=== PATIENT | female | born 1985 | race Caucasian/White ===

== ENCOUNTER 2016-08-13 21:44 | Inpatient (IN) | payer OTHER ==
[~2016-08-13] VITALS: Ht 160 cm; Wt 83.0 kg
[2016-08-13 21:55] VITALS: BP 143/89
--- NOTE | 2016-08-13 23:45 | NUR ---
PT TAKEN TO BED 6
--- NOTE | 2016-08-13 23:47 | NUR ---
30 Y/O F W/C/O R SIDE ABD PAIN AND DIARRHEA X 1 DAY. DENIES ANY FEVER, N/V. ER MADE AWARE.
--- NOTE | 2016-08-13 23:57 | NUR ---
Dr. Mcconnell evaluating patient at bedside.
[2016-08-14] MEDS ORDERED: NACL 0.9% 1,000 ML IV ONE (00:03)
[2016-08-14] MEDS ORDERED: MORPHINE SULFATE 4 MG/ML SYR IVP ONE ×2 (00:05→01:40)
[2016-08-14] MEDS ORDERED: ONDANSETRON 4 MG/2 ML VIAL IVP ONE ×2 (00:05→01:40)
[2016-08-14 00:15] LABS: BASOPHILS # (AUTO) 0.1 K/uL (0.00-0.22); BASOPHILS % (AUTO) 1.1 % (0.0-2.0); EOSINOPHILS # (AUTO) 0.2 K/uL (0-0.4); EOSINOPHILS % (AUTO) 1.9 % (0.0-4.0); HEMATOCRIT 39.3 % (36-48); LYMPHOCYTES # (AUTO) 1.8 K/uL (2.5-16.5); LYMPHOCYTES % (AUTO) 17.7 % (20.5-51.1); MEAN CORPUSCULAR HEMOGLOBIN 29 pg (27-31); MEAN CORPUSCULAR HGB CONC 33 g/dL (33-37); MEAN CORPUSCULAR VOLUME 89 fL (80-94); MONOCYTES # (AUTO) 0.7 K/uL (0.8-1.0); MONOCYTES % (AUTO) 7.2 % (1.7-9.3); NEUTROPHILS # (AUTO) 7.1 K/uL (1.8-7.7); NEUTROPHILS % (AUTO) 72.1 % (42.2-75.2); PLATELET COUNT (AUTO) 197 K/uL (140-450); RED BLOOD CELL COUNT(AUTO) 4.43 MIL/uL (4.20-5.40); RED CELL DISTRIBUTION WIDTH 12.1 % (11.6-13.7); WHITE BLOOD COUNT (AUTO) 9.9 K/uL (4.8-10.8)
[2016-08-14 00:26] LABS: APPEARANCE,URINE CLEAR (CLEAR); BILIRUBIN,URINE NEGATIVE (NEGATIVE); BLOOD, URINE NEGATIVE (NEGATIVE); COLOR,URINE YELLOW (YELLOW); LEUKOCYTE ESTERASE ,URINE NEGATIVE (NEGATIVE); NITRITE, URINE NEGATIVE (NEGATIVE); PROTEIN,URINE NEGATIVE (NEGATIVE); UGLUCOSE NEGATIVE (NEGATIVE); UROBILINOGEN,URINE 0.2 EU/dL (0.2 - 1)
[2016-08-14 00:31] LABS: ALBUMIN 3.7 g/dL (3.4-5.0); ANION GAP 12.2 (8-16); CALCIUM 8.7 mg/dL (8.5-10.1); CARBON DIOXIDE 27.8 mmol/L (21-32); CREATININE 0.8 mg/dL (0.6-1.3); TOTAL BILIRUBIN 0.9 mg/dL (0.0-1.0); TOTAL PROTEIN, SERUM 7.7 g/dL (6.4-8.2)
--- NOTE | 2016-08-14 00:38 | NUR ---
PT TAKEN TO CT
[2016-08-14 00:49] LABS: BACTERIA,URINE 2+ /HPF (None Seen); RBC,URINE 0-3 /HPF (0-5); WBC,URINE 0-3 /HPF (0-5)
[2016-08-14 00:50] LABS: SQUAMOUS EPITHELIAL CELL,UR 0-3 /LPF (0-3 (FEW))
--- NOTE | 2016-08-14 00:51 | NUR ---
PT RETURN FROM CT
--- NOTE | 2016-08-14 02:14 | NUR ---
PT RESTING, ON MONITOR, VSS. WILL CONT TO MONITOR.
[2016-08-14] MEDS ORDERED: PIPERACILLIN/TAZOBACTAM 3.375 GM in DEXTROSE 5% 50 ML IV ONE (02:15)
[2016-08-14] MEDS ORDERED: HYDROmorphone 1 MG/ML AMP IVP ONE (02:15)
[2016-08-14] MEDS ORDERED: metroNIDAZOLE 500 MG/NS PREMIX 100 ML IV ONE (02:15)
[2016-08-14] MEDS ORDERED: PIPERACILLIN/TAZOBACTAM 3.375 GM VIAL IV ONE (02:26)
[2016-08-14] MEDS ORDERED: MORPHINE SULFATE 2 MG/ML SYR IVP PRN (02:30)
[2016-08-14] MEDS ORDERED: LORazepam 2 MG/ML VIAL IVP PRN (02:30)
--- NOTE | 2016-08-14 02:32 | NUR ---
Patient will be admitted to care of DR. KOENIG. Admited to MS. Will go to room ICU 1. Belongings list completed.
--- NOTE | 2016-08-14 02:59 | NUR ---
REPORT GIVEN TO KRISTYN MENDOZA.
--- NOTE | 2016-08-14 03:25 | NUR ---
PATIENT ADMITTED TO ICU1 FROM ED FOR ABDOMINAL PAIN. PATIENT ON MS STATUS. AAOX4, HAS IV ON LAC G#20, PATENT AND INTACT, WITH STEADY GAIT, VOIDED WITH CLEAR YELLOW URINE, NPO AT THIS TIME, SKIN INTACT. COMPLAINING OF ABDOMINAL PAIN 6/10, WILL MEDICATE WITH MORPHINE.
[2016-08-14 03:30] VITALS: BP 142/85
[2016-08-14] MEDS: NACL 0.9% 1,000 ML IV SCH ×3 (03:30→22:28)
[2016-08-14 04:00] VITALS: BP 129/88
--- NOTE | 2016-08-14 04:48 | NUR ---
PATIENT SLEEPING AT THIS TIME.
[2016-08-14] MEDS ORDERED: PIPERACILLIN/TAZOBACTAM 3.375 GM in DEXTROSE 5% 50 ML IV SCH (05:00)
--- NOTE | 2016-08-14 06:04 | NUR ---
SPOKE WITH DR COBB AT 0600, INFORMED THAT PATIENT WOKE UP AND STARTED TO HAVE ABDOMINAL PAIN AGAIN, PATIENT WITH ORDER OF MORPHINE 2 MG Q4H, DR. COBB CHANGED MORPHINE ORDER TO 4 MG IVP Q3H PRN SEVERE PAIN.
--- NOTE | 2016-08-14 06:30 | NUR ---
CALLED THALIA GALLAGHER TO INFORM REGARDING THE CONSULT, MD WILL TRY TO COME AND SEE THE PATIENT TODAY, GAVE ORDER TO START PATIENT ON FULL LIQUID DIET.
[2016-08-14] MEDS ORDERED: MORPHINE SULFATE 4 MG/ML SYR ONE (06:43)
--- NOTE | 2016-08-14 06:46 | NUR ---
PATIENT COMPLAINING OF SEVERE ABDOMINAL PAIN 09/26, MORPHINE 4 MG IVP GIVEN.
--- NOTE | 2016-08-14 07:30 | NUR ---
RECEIVED REPORT FROM CREATIVE COORDINATOR RN. PT IS AWAKE,ALERT AND ORIENTED X 4.BEDSIDE MONITOR SHOWS SR, NO S/S OF RESPIRATORY NOTED. V/S WITHIN NORMAL RANGE. PT HAS IV ON L AC 20G NS AT 100ML/HR. SKIN IS INTACT. PT COMPLAINS ABDOMEN PAIN BUT IT IS TOLERABLE. PER KRISTYN CREATIVE COORDINATOR RN, 4 MG MORPHINE WAS GIVEN AT 0640. WILL CONTINUE TO MONITOR PT, PER CREATIVE COORDINATOR RN, PT WILL BE TRANSFERRED TO TELE.
--- NOTE | 2016-08-14 07:40 | NUR ---
REPORT GIVEN TO SHANNON MENDOZA. TRANSFERRED PT TO 122A . VSS .PT IN STABLE CONDITION AT THIS TIME.
--- NOTE | 2016-08-14 07:45 | NUR ---
PT ARRIVED ON UNIT, TRANSFER FROM ICU. PT IS ALERT AND ORIENTED X 4. SHE CAME ON A WHEELCHAIR. PT IS AMBULATING. INTRODUCED MYSELF AND UPDATED THE BOARD. V/S WITHIN NORMAL RANGE. C/O OF ABD PAIN. WILL SEE WHEN LAST PAIN MED WAS GIVEN. PT HAS IV ON L AC 20G NS AT 100ML/HR. SKIN IS INTACT. WILL CONTINUE TO MONITOR PT.
[2016-08-14 08:00] VITALS: BP 121/61
[2016-08-14] MEDS: ENOXAPARIN 40 MG/0.4 ML SYR SUBQ SCH (08:26)
--- NOTE | 2016-08-14 08:26 | NUR ---
ADMINISTERED MORNING MEDS. PT TOLERATED WELL. WAITING ON DR. AYALA. WILL CONTINUE TO MONITOR PT. PAIN MED WILL BE GIVEN IN ANOTHER HOUR OR SO.
--- NOTE | 2016-08-14 08:30 | NUR ---
PATIENT HAS BEEN SCREENED AND CATEGORIZED HIGH NUTRITION RISK. PATIENT WILL BE SEEN WITHIN 1-2 DAYS OF ADMISSION. 08/14/16-08/15/[address]
--- NOTE | 2016-08-14 10:05 | NUR ---
DR. AYALA CALLED. OR SCHEDULE FOR TOMORROW. LAP, POSSIBLE OPEN APPENDECTOMY. FULL LIQ DIET, NPO AT MIDNIGHT. PREG TEST, LABS: CBC, CMP, PT, INR. NEED TO GET CONSENT. WILL PUT IN ORDERS FOR .
[2016-08-14] MEDS: MORPHINE SULFATE 4 MG/ML SYR IVP PRN ×4 (10:11→20:15)
--- NOTE | 2016-08-14 10:15 | NUR ---
ADMINISTERED PAIN MEDS. PT TOLERATED WELL. WILL CONTINUE TO MONITOR PT.
--- NOTE | 2016-08-14 11:05 | NUR ---
CM NOTE INITIAL REVIEW FAXED TO [facility] [phone]
--- NOTE | 2016-08-14 11:38 | NUR ---
PT RESTING WITH FAMILY AT BEDSIDE. PAIN IS BETTER BUT NOT GONE. WILL CONTINUE TO MONITOR PT.
[2016-08-14] MEDS: PIPER/TAZO 3.375GM/D5W PREMIX 50 ML IV SCH ×2 (13:24→20:17)
[2016-08-14] MEDS: ONDANSETRON 4 MG/2 ML VIAL IVP PRN ×2 (13:25→20:12)
--- NOTE | 2016-08-14 13:30 | NUR ---
ADMINISTERED PAIN AND NAUSEA MEDICATION. PT TOLERATED WELL. WILL CONTINUE TO MONITOR PT.
--- NOTE | 2016-08-14 14:11 | NUR ---
08/14/16 RD INITIAL ASSESSMENT COMPLETED PLEASE REFER TO NUTRITION ASSESSMENT UNDER CARE ACTIVITY FOR ESTIMATED NUTRITIONAL NEEDS. 1. CONTINUE FULL LIQUID DIET, ADVANCE TOLERATED TO NO ADDED SALT DIET 2. RD TO FOLLOW-UP 2-3 DAYS; HIGH RISK FOZIA ALBERTO RD
--- NOTE | 2016-08-14 15:35 | NUR ---
PT RESTING COMFORTABLY WITH SPOUSE AT BEDSIDE. PT STATED SHE JUST WOKE UP. NAUSEA IS GONE BUT PAIN IS STILL LINGERING. WILL CONTINUE TO MONITOR PT.
[2016-08-14 15:37] LABS: BASOPHILS % (AUTO) 0.5 % (0.0-2.0); EOSINOPHILS # (AUTO) 0.2 K/uL (0-0.4); EOSINOPHILS % (AUTO) 2.7 % (0.0-4.0); HEMATOCRIT 38.7 % (36-48); HEMOGLOBIN 13.1 g/dL (12.0-16.0); LYMPHOCYTES # (AUTO) 1.3 K/uL (2.5-16.5); LYMPHOCYTES % (AUTO) 16.2 % (20.5-51.1); MEAN CORPUSCULAR HEMOGLOBIN 30 pg (27-31); MEAN CORPUSCULAR HGB CONC 34 g/dL (33-37); MEAN CORPUSCULAR VOLUME 88 fL (80-94); MONOCYTES # (AUTO) 0.7 K/uL (0.8-1.0); MONOCYTES % (AUTO) 8.6 % (1.7-9.3); NEUTROPHILS # (AUTO) 5.7 K/uL (1.8-7.7); PLATELET COUNT (AUTO) 197 K/uL (140-450); RED CELL DISTRIBUTION WIDTH 12.5 % (11.6-13.7); WHITE BLOOD COUNT (AUTO) 7.9 K/uL (4.8-10.8)
[2016-08-14 15:52] LABS: PROTHROMBIN TIME 10.3 secs (10.8-13.4)
[2016-08-14 16:00] VITALS: BP 131/68
[2016-08-14 16:00] LABS: ALBUMIN 3.5 g/dL (3.4-5.0); ANION GAP 13.4 (8-16); CARBON DIOXIDE 25.6 mmol/L (21-32); CREATININE 0.8 mg/dL (0.6-1.3); TOTAL BILIRUBIN 1.1 mg/dL (0.0-1.0); TOTAL PROTEIN, SERUM 7.3 g/dL (6.4-8.2)
--- NOTE | 2016-08-14 18:07 | NUR ---
PT RESTING IN BED WITH SPOUSE AT BEDSIDE. IV PUMP BEEPING. FLUSHED IV SITE. INFUSING WELL. PT TOLERATED WELL. U/S CAME AND DID THE LIVER US. PT ATE DINNER. WILL CONTINUE TO MONITOR PT.
--- NOTE | 2016-08-14 19:25 | NUR ---
ENDORSED PT TO THE GATE CLERK NURSE AT BEDSIDE FOR CONTINUITY OF CARE. PT IS IN STABLE CONDITION.
--- NOTE | 2016-08-14 19:26 | NUR ---
RECD. RESTING IN BED, AWAKE, A/OX4, RESPIRATION EVEN AND UNLABORED. IV OF NS AT 100 ML/HR INFUSING, LEFT AC G20. PLAN OF CARE FOR THE SHIFT DISCUSSED. VERBALIZED UNDERSTANDING. DENIES PAIN 0/10. NPO PAST MIDNIGHT FOR POSSIBLE LAP APPENDECTOMY IN AM. FAMILY AT THE BEDSIDE.
[2016-08-14 20:00] VITALS: BP 129/87
--- NOTE | 2016-08-14 20:00 | NUR ---
Patient's Plan of Care was discussed and reviewed with DRAWING CHECKER: SIN CONNOLLY
--- NOTE | 2016-08-14 20:12 | NUR ---
NAUSEATED, MEDICATED WITH ZOFRAN 4 MG. IVP BY REJI CARRILLO.
--- NOTE | 2016-08-14 20:42 | NUR ---
NO NAUSEA NOTED, RESTING COMFORTABLY IN BED.
[2016-08-15] VITALS: BP 126/78
--- NOTE | 2016-08-15 | NUR ---
NO COMPLAINT OF ABDOMINAL PAIN 0/10.
[2016-08-15] MEDS: NACL 0.9% 1,000 ML IV SCH ×3 (01:33→16:58)
--- NOTE | 2016-08-15 03:00 | NUR ---
CHECKED PATIENT, NO COMPLAINT OF ABDOMINAL PAIN 0/10.
[2016-08-15] MEDS: PIPER/TAZO 3.375GM/D5W PREMIX 50 ML IV SCH ×3 (05:32→21:29)
[2016-08-15 05:40] VITALS: BP 125/77
[2016-08-15] MEDS: MORPHINE SULFATE 4 MG/ML SYR IVP PRN ×4 (05:47→20:11)
[2016-08-15 06:13] LABS: BASOPHILS # (AUTO) 0.2 K/uL (0.00-0.22); BASOPHILS % (AUTO) 1.9 % (0.0-2.0); EOSINOPHILS # (AUTO) 0.3 K/uL (0-0.4); EOSINOPHILS % (AUTO) 3.1 % (0.0-4.0); HEMATOCRIT 39.5 % (36-48); LYMPHOCYTES # (AUTO) 1.8 K/uL (2.5-16.5); LYMPHOCYTES % (AUTO) 22.1 % (20.5-51.1); MEAN CORPUSCULAR HEMOGLOBIN 29 pg (27-31); MEAN CORPUSCULAR HGB CONC 33 g/dL (33-37); MEAN CORPUSCULAR VOLUME 89 fL (80-94); MONOCYTES # (AUTO) 0.8 K/uL (0.8-1.0); MONOCYTES % (AUTO) 10.1 % (1.7-9.3); NEUTROPHILS % (AUTO) 62.8 % (42.2-75.2); PLATELET COUNT (AUTO) 199 K/uL (140-450); RED BLOOD CELL COUNT(AUTO) 4.44 MIL/uL (4.20-5.40); RED CELL DISTRIBUTION WIDTH 12.6 % (11.6-13.7); WHITE BLOOD COUNT (AUTO) 8.1 K/uL (4.8-10.8)
[2016-08-15 06:27] LABS: ANION GAP 11.3 (8-16); CALCIUM 8.1 mg/dL (8.5-10.1); CARBON DIOXIDE 27.8 mmol/L (21-32); CREATININE 0.8 mg/dL (0.6-1.3); POTASSIUM 4.1 mmol/L (3.5-5.1)
--- NOTE | 2016-08-15 07:00 | NUR ---
COMPLAINT OF ABDOMINAL PAIN ATTENDED PROMPTLY, MEDICATED ORDERED. CONDITION REMAIN STABLE. WILL ENDORSE TO AM NURSE FOR CONTINUITY OF CARE.
--- NOTE | 2016-08-15 07:15 | NUR ---
ENDORSED TO REJI CARLSON FOR CONTINUITY OF CARE.
--- NOTE | 2016-08-15 07:16 | NUR ---
RECEIVED REPORT FROM NIGHT NURSE AT PT BEDSIDE. PT AMBULATORY. AAOX4. C/O SLIGHT ABDOMINAL DISCOMFORT NO NEED FOR MEDICATIONS AT THIS TIME. PT C/O DISCOMFORT AT IV SITE, DISCONTINUED AT THIS TIME. PATIENT HAS CALL LIGHT WITHIN REACH. NPO STATUS MAINTAINED. WILL CONTINUE TO MONITOR.
[2016-08-15 08:00] VITALS: BP 100/73
[2016-08-15] MEDS ORDERED: BUPIVACAINE-MPF 0.25% 30 ML VIAL INJ ONE (08:35)
[2016-08-15] MEDS: ENOXAPARIN 40 MG/0.4 ML SYR SUBQ SCH (09:00)
--- NOTE | 2016-08-15 10:00 | NUR ---
PT AMBULATORY. PATIENT TOOK A SHOWER. NEW IV INSERTED ON LEFT FOREARM #22. PATENT AND INTACT. NO S/S OF ACUTE DISTRESS.
--- NOTE | 2016-08-15 12:18 | NUR ---
CM NOTE CONCURRENT REVIEW FAXED TO [facility] [phone] JAH EXT [phone]
--- NOTE | 2016-08-15 12:40 | NUR ---
PATIENT TAKEN OFF FLOOR FOR SURGICAL PROCEDURE.
[2016-08-15] MEDS ORDERED: PHENYLEPHRINE 10 MG/ML VIAL ONE (13:35)
[2016-08-15] MEDS ORDERED: SUCCINYLCHOLINE CHLORIDE 200 MG/10 ML VIAL IVP ONE (13:35)
[2016-08-15] MEDS ORDERED: PROPOFOL 200 MG/20 ML VIAL IV ONE (13:35)
[2016-08-15] MEDS ORDERED: GLYCOPYRROLATE 0.2 MG/ML VIAL ONE (13:35)
[2016-08-15] MEDS ORDERED: ROCURONIUM 50 MG/5 ML VIAL IV ONE (13:35)
[2016-08-15] MEDS ORDERED: KETOROLAC 30 MG/ML VIAL ONE (13:35)
[2016-08-15] MEDS ORDERED: ONDANSETRON 4 MG/2 ML VIAL ONE (13:35)
[2016-08-15] MEDS ORDERED: HYDROmorphone PFS 2 MG/ML SYR ONE (13:38)
[2016-08-15] MEDS ORDERED: fentaNYL 0.05 MG/ML VIAL ONE (13:38)
[2016-08-15] MEDS ORDERED: ONDANSETRON 4 MG/2 ML VIAL IVP PRN (14:00)
[2016-08-15] MEDS ORDERED: HYDROmorphone 1 MG/ML AMP IVP PRN (14:00)
[2016-08-15] MEDS: HYDROmorphone PFS 2 MG/ML SYR ONE ×4 (15:22→15:52)
[2016-08-15 16:00] VITALS: BP 124/78
--- NOTE | 2016-08-15 16:00 | NUR ---
PATIENT RETURNED TO ROOM FROM SURGICAL PROCEDURE. NO S/S OF ACUTE DISTRESS. C/O SLIGHT ABDOMINAL DISCOMFORT. AAOX4.
[2016-08-15] MEDS: ONDANSETRON 4 MG/2 ML VIAL IVP PRN (17:58)
--- NOTE | 2016-08-15 18:08 | NUR ---
PATIENT EATING DINNER IN BED. C/O NAUSEA, ONE EPISODE OF VOMITING, MEDICATED ORDERED. PATIENT TOLERATING CLEAR LIQUIDS AT THIS TIME.
--- NOTE | 2016-08-15 19:40 | NUR ---
ENDORSED PLAN OF CARE TO NURSE SIN AT PT BEDSIDE. NO S/S OF ACUTE DISTRESS NOTED.
--- NOTE | 2016-08-15 19:41 | NUR ---
RECD. RESTING IN BED, AWAKE, A/OX4. RESPIRATION EVEN AND UNLABORED. IV OF NS AT 100 ML/HR INFUSING, LEFT FOREARM G 22. S/P APPENDECTOMY, INCISION IN THE ABDOMEN (4) WITH GLUED, DRY, INTACT, EXCEPT LOWER INCISION WITH SMALL AMOUNT OF BLOOD SEEPING, PAT DRY, NO ACTIVE BLEEDING NOTED, WITH ABDOMINAL BINDER IN PLACED. PLAN OF CARE FOR THE SHIFT DISCUSSED. VERBALIZED UNDERSTANDING. PAIN IN THE ABDOMEN 2/, WILL MEDICATE ORDERED. VS STABLE. NO FEVER, NO N/V NOTED. AT THE BEDSIDE.
[2016-08-15 20:00] VITALS: BP 120/69
--- NOTE | 2016-08-15 20:00 | NUR ---
Patient's Plan of Care was discussed and reviewed with AIR BRUSH DECORATOR: SIN CONNOLLY
--- NOTE | 2016-08-15 21:10 | NUR ---
AMBULATED TO BR TO VOID. GET DIZZY, ASSISTED BACK TO BED. VS TAKEN - BP - 102/61, HR - 85, 02 SAT - 94%. INSTRUCTED TO CALL NURSE FOR ASSISTANCE BEFORE GETTING OUT OF BED. VERBALIZED UNDERSTANDING.
[2016-08-16 01:26] VITALS: BP 106/62
--- NOTE | 2016-08-16 01:30 | NUR ---
ASSISTED TO AMBULATE TO BR TO VOID, NO DIZZINESS. BACK TO BED AFTER VOIDING.
[2016-08-16] MEDS: ONDANSETRON 4 MG/2 ML VIAL IVP PRN ×2 (01:35→01:44)
[2016-08-16] MEDS: MORPHINE SULFATE 4 MG/ML SYR IVP PRN ×4 (01:43→11:53)
--- NOTE | 2016-08-16 01:44 | NUR ---
VOMITED SMALL AMOUNT OF LIQUIDS, MEDICATED WITH ZOFRAN 4 MG. IVP BY REJI SCHULTE.
[2016-08-16 02:09] VITALS: BP 120/73
--- NOTE | 2016-08-16 02:14 | NUR ---
SLEEPING COMFORTABLY IN BED.
[2016-08-16] MEDS: NACL 0.9% 1,000 ML IV SCH ×4 (02:17→23:05)
[2016-08-16] MEDS: PIPER/TAZO 3.375GM/D5W PREMIX 50 ML IV SCH ×3 (05:19→20:24)
[2016-08-16 06:28] LABS: BASOPHILS % (AUTO) 0.3 % (0.0-2.0); EOSINOPHILS # (AUTO) 0.1 K/uL (0-0.4); EOSINOPHILS % (AUTO) 1.1 % (0.0-4.0); LYMPHOCYTES # (AUTO) 1.5 K/uL (2.5-16.5); LYMPHOCYTES % (AUTO) 12.1 % (20.5-51.1); MEAN CORPUSCULAR HEMOGLOBIN 29 pg (27-31); MEAN CORPUSCULAR HGB CONC 33 g/dL (33-37); MEAN CORPUSCULAR VOLUME 88 fL (80-94); MONOCYTES # (AUTO) 0.8 K/uL (0.8-1.0); MONOCYTES % (AUTO) 6.4 % (1.7-9.3); NEUTROPHILS # (AUTO) 10.4 K/uL (1.8-7.7); NEUTROPHILS % (AUTO) 80.1 % (42.2-75.2); PLATELET COUNT (AUTO) 204 K/uL (140-450); RED CELL DISTRIBUTION WIDTH 12.4 % (11.6-13.7); WHITE BLOOD COUNT (AUTO) 12.8 K/uL (4.8-10.8)
[2016-08-16 06:51] LABS: HEMOGLOBIN 9.8 g/dL (12.0-16.0)
--- NOTE | 2016-08-16 06:58 | NUR ---
COMPLAINT OF ABDOMINAL PAIN ATTENDED PROMPTLY, MEDICATED ORDERED. ALL NEEDS ATTENDED. WILL ENDORSE TO AM NURSE FOR CONTINUITY OF CARE.
[2016-08-16 06:59] LABS: ANION GAP 14.9 (8-16); CALCIUM 7.9 mg/dL (8.5-10.1); CARBON DIOXIDE 23.4 mmol/L (21-32); CREATININE 0.8 mg/dL (0.6-1.3); POTASSIUM 4.3 mmol/L (3.5-5.1)
--- NOTE | 2016-08-16 07:25 | NUR ---
ENDORSED TO REJI CARLSON FOR CONTINUITY OF CARE.
[2016-08-16 08:00] VITALS: BP 132/75
--- NOTE | 2016-08-16 08:50 | NUR ---
CM NOTE CONCURRENT REVIEW FAXED TO [facility] [phone] JAH EXT [phone]
[2016-08-16] MEDS: ENOXAPARIN 40 MG/0.4 ML SYR SUBQ SCH (08:56)
--- NOTE | 2016-08-16 09:42 | NUR ---
PATIENT AMBULATING AROUND NURSING STATION WITH . NO S/S OF ACUTE DISTRESS. STEADY GAIT. SLIGHT DISCOMFORT. SPOKE WITH DR. AYALA REGARDING PLAN OF CARE, MD SPOKE WITH PATIENT AND FAMILY.
--- NOTE | 2016-08-16 11:10 | NUR ---
PT C/O SOB. VITALS WNL, PLACED PATIENT ON O2 2L NC. DR. JAQUEZ NOTIFIED. CXR ORDERED. AT BEDSIDE.
--- NOTE | 2016-08-16 12:56 | NUR ---
08/16/16 RD FOLLOW-UP ASSESSMENT COMPLETED PLEASE REFER TO NUTRITION ASSESSMENT UNDER CARE ACTIVITY FOR ESTIMATED NUTRITIONAL NEEDS. 1. CONTINUE FULL LIQUID DIET, ADVANCE TOLERATED TO REGULAR DIET 2. RD TO FOLLOW-UP 2-3 DAYS; HIGH RISK FOZIA ALBERTO RD
--- NOTE | 2016-08-16 13:00 | NUR ---
PT WAS MEDICATED FOR PAIN ORDERED. NO S/S OF RESPIRATORY DISTRESS NOTED. VITALS WNL.
--- NOTE | 2016-08-16 14:20 | NUR ---
PT SLEEPING. NO S/S OF ACUTE DISTRESS NOTED. AT BEDSIDE.
[2016-08-16 16:00] VITALS: BP 127/89
[2016-08-16] MEDS ORDERED: AMIKACIN PER PHARMACY MC PRN (17:50)
[2016-08-16] MEDS: SIMETHICONE 80 MG TAB.CHEW PO PRN ×2 (18:26→23:15)
--- NOTE | 2016-08-16 19:29 | NUR ---
ENDORSED PLAN OF CARE TO NIGHT NURSE AT PT BEDSIDE. PT RESTING IN BED. NO S/S OF ACUTE DISTRESS NOTED.
--- NOTE | 2016-08-16 19:30 | NUR ---
PATIENT IS CURRENTLY RESTING IN BED AWAKE WATCHING TV,IVF INFUSING WELL IV SITE PATENT NO INFILTRATION NOTED.PATIENT STATES,"IM PASSING GAS." THE MYLICON PILL HELPED ME A LOT. PATIENT NEEDS MET SHE WAS ASKING FOR ANOTHER PAIR OF SOCKS WILL BE GIVEN TO THE PATIENT.CALL LIGHT WITHIN REACH WILL CONTINUE TO MONITOR.
[2016-08-16 20:00] VITALS: BP 128/52
--- NOTE | 2016-08-16 20:00 | NUR ---
Patient's Plan of Care was discussed and reviewed with BODY ARTIST: HANNAH Grace
[2016-08-16] MEDS: HYDROmorphone 1 MG/ML AMP IVP PRN (20:24)
--- NOTE | 2016-08-16 21:30 | NUR ---
PATIENT IS WATCHING TV AT THIS TIME.WILL CONTINUE TO MONITOR.
--- NOTE | 2016-08-16 23:15 | NUR ---
PATIENT WAS MEDICATED WITH MYLICON TO HELP HER RELIEVE SOME GAS.PATIENT CONTINUE TO AMBULATE TO THE [facility] AND TOLERATES ACTIVITY WELL.WILL CONTINUE TO MONITOR.
[2016-08-17] VITALS (7 sets, daily range): BP systolic 109–143; BP diastolic 60–77
[2016-08-17] MEDS: HYDROmorphone 1 MG/ML AMP IVP PRN ×3 (00:03→12:36)
--- NOTE | 2016-08-17 00:03 | NUR ---
PATIENT COMPLAINS OF SEVERE PAIN 08/26 REJI HAYWARD AWARE SHE WILL MEDICATE THE PATIENT FOR PAIN.WILL CONTINUE TO MONITOR.
--- NOTE | 2016-08-17 03:06 | NUR ---
ABD INCISIONS X4 WERE CHECKED AND PICTURES TAKEN OF INCISIONS WITH HER PERMISSION.PATIENT STABLE DENIES PAIN.
[2016-08-17] MEDS: PIPER/TAZO 3.375GM/D5W PREMIX 50 ML IV SCH ×3 (05:01→20:34)
--- NOTE | 2016-08-17 06:02 | NUR ---
PATIENT IS CURRENTLY AWAKE ALERT ORIENTED RESTING IN BED IVF INFUSING WELL IV SITE PATENT.NO PAIN OR DISCOMFORT NOTED AT THIS TIME.PATIENT CONTINUES TO BE ENCOURAGED TO AMBULATE NEEDS MET WILL CONTINUE TO MONITOR CALL LIGHT WITHIN REACH.D
--- NOTE | 2016-08-17 07:31 | NUR ---
PATIENT IS CURRENTLY AWAKE ALERT RESTING IN BED REPORT ENDORSED TO REJI DUCKWORTH SHE WILL RESUME CARE OF THE PATIENT.
--- NOTE | 2016-08-17 07:32 | NUR ---
PT AWAKE AND ALERT, NO SIGNS OF ACUTE DISTRESS. BOWEL SOUNDS ACTIVE IN ALL 4 QUADRANTS. BOWEL AND BLADDER CONTINENCE. SKIN INTACT. PT COMPLAINT OF PAIN 8/10 IN RIGHT LOWER ABDOMEN, WILL MEDICATE. AMBULATORY WITH BRP. BED IN LOW POSITION WITH BILATERAL HALF SIDE RAILS UP, CALL LIGHT WITHIN REACH. RE-ORIENTED PATIENT TO HOSPITAL AND TO UNIT, PT VERBALIZED UNDERSTANDING.
[2016-08-17 07:43] LABS: BASOPHILS # (AUTO) 0.1 K/uL (0.00-0.22); BASOPHILS % (AUTO) 1.2 % (0.0-2.0); EOSINOPHILS # (AUTO) 0.1 K/uL (0-0.4); EOSINOPHILS % (AUTO) 1.2 % (0.0-4.0); HEMATOCRIT 22.9 % (36-48); HEMOGLOBIN 7.5 g/dL (12.0-16.0); LYMPHOCYTES # (AUTO) 2.1 K/uL (2.5-16.5); LYMPHOCYTES % (AUTO) 24.8 % (20.5-51.1); MEAN CORPUSCULAR HEMOGLOBIN 29 pg (27-31); MEAN CORPUSCULAR HGB CONC 33 g/dL (33-37); MEAN CORPUSCULAR VOLUME 90 fL (80-94); MONOCYTES # (AUTO) 0.8 K/uL (0.8-1.0); MONOCYTES % (AUTO) 9.8 % (1.7-9.3); NEUTROPHILS # (AUTO) 5.3 K/uL (1.8-7.7); PLATELET COUNT (AUTO) 174 K/uL (140-450); RED BLOOD CELL COUNT(AUTO) 2.55 MIL/uL (4.20-5.40); RED CELL DISTRIBUTION WIDTH 12.7 % (11.6-13.7); WHITE BLOOD COUNT (AUTO) 8.4 K/uL (4.8-10.8)
[2016-08-17] MEDS: ENOXAPARIN 40 MG/0.4 ML SYR SUBQ SCH (08:27)
[2016-08-17] MEDS: ONDANSETRON 4 MG/2 ML VIAL IVP PRN ×2 (08:35→12:36)
[2016-08-17] MEDS: NACL 0.9% 1,000 ML IV SCH ×2 (10:28→20:28)
--- NOTE | 2016-08-17 11:55 | NUR ---
PATIENT VOMITED APPROXIMATELY 100ML LIGHT BROWN/GREEN LIQUID. NOTED, WILL CONTINUE TO MONITOR AND ADMINISTER ZOFRAN NEEDED.
--- NOTE | 2016-08-17 14:50 | NUR ---
DR JAQUEZ SAW PATIENT, RECEIVED NEW ORDERS FOR 2 UNITS PACKED RED BLOOD CELLS. NOTED, WILL CARRY OUT.
--- NOTE | 2016-08-17 14:55 | NUR ---
CALLED LAB TO CONFIRM ORDER OF 2 UNITS STAT PACKED RED BLOOD CELLS.
--- NOTE | 2016-08-17 19:22 | NUR ---
FINISHED FIRST UNIT OF PACKED RED BLOOD CELLS, NO ADVERSE REACTIONS, WILL ENDORSE SECOND UNIT TO SUPERVISOR FURNACE ROOM NURSE.
--- NOTE | 2016-08-17 19:34 | NUR ---
PT AWAKE AND ALERT, NO SIGNS OF ACUTE DISTRESS. WILL ENDORSE TO MAKE UP OPERATOR NURSE FOR CONTINUITY OF CARE.
--- NOTE | 2016-08-17 19:35 | NUR ---
PATIENT IS CURRENTLY AWAKE RESTING IN BED.SHE IS AWARE THAT SHE NEEDS ANOTHER UNIT OF BLOOD TONIGHT AND SHE VERBALIZES UNDERSTANDING.PATIENT DENIES PAIN AT THIS TIME. NO COMPLAINS OF FEELING NAUSEATED EITHER. AT BEDSIDE WITH THE PATIENT WILL CONTINUE TO MONITOR.CALL LIGHT WITHIN REACH.
--- NOTE | 2016-08-17 20:00 | NUR ---
Patient's Plan of Care was discussed and reviewed with SENIOR ENGINEERING TECHNICIAN: HANNAH MURRAY
--- NOTE | 2016-08-17 20:00 | NUR ---
SECOND UNIT OF PRBC STARTED WILL MONITOR THE PATIENT FOR ANY ADR.
--- NOTE | 2016-08-17 20:15 | NUR ---
TRANSFUSION OF BLOOD ONGOING PATIENT IS DOING WELL NO ADR NOTED.WILL CONTINUE TO MONITOR.VS REMAIN STABLE.
--- NOTE | 2016-08-17 20:34 | NUR ---
ANOTHER IV LINE RESTARTED TO HER RIGHT HAND G#22 AT FIRST ATTEMPT WITH GOOD BLOOD FLOW DUE TO PATIENT GETTING BLOOD TRANSFUSION AT THIS TIME AND CANNOT BE INTERRUPTED.ERJI SANTIZO AWARE AND SHE WILL GIVE THE ANTIBIOTIC.
--- NOTE | 2016-08-17 21:00 | NUR ---
PATIENT IS CURRENTLY RESTING IN BED AMBULATES TO THE BATHROOM AND BACK TO BED SOMETIMES ASKS FOR ASSISTANCE AND IS ASSISTED.I OFFERED PAIN MEDICATION PATIENT STATES,"IM DOING FINE IM NOT HAVING PAIN AT THIS TIME."WILL CONTINUE TO MONITOR.
--- NOTE | 2016-08-17 22:56 | NUR ---
PATIENT IS CURRRENTLY STABLE SECOND UNIT OF PRBC COMPLETE NO ADR NOTED.VS STABLE PATIENT IS DOING WELL.WILL CONTINUE TO MONITOR.
[2016-08-18] MEDS: NACL 0.9% 1,000 ML IV SCH ×3 (00:22→21:47)
[2016-08-18 00:25] VITALS: BP 121/71
--- NOTE | 2016-08-18 00:25 | NUR ---
PATIENT IS CURRENTLY RESTING IN BED DENIES PAIN.IVF INFUSING WELL IV SITE PATENT.CALL LIGHT WITHIN REACH.
--- NOTE | 2016-08-18 03:30 | NUR ---
PATIENT SLEEPING IVF INFUSING WELL IV SITE PATENT WILL CONTINUE TO MONITOR.CALL LIGHT WITHIN REACH.
[2016-08-18] MEDS: PIPER/TAZO 3.375GM/D5W PREMIX 50 ML IV SCH ×3 (04:59→20:07)
[2016-08-18] MEDS: HYDROmorphone 1 MG/ML AMP IVP PRN ×5 (05:42→21:47)
--- NOTE | 2016-08-18 05:48 | NUR ---
PATIENT IS CURRENTLY AWAKE ALERT HAS JUST RECEIVED PAIN MEDICATION BY REJI SANTIZO.IVF INFUSING WELL, IV SITE PATENT. NEEDS MET WILL CONTINUE TO MONITOR.
--- NOTE | 2016-08-18 06:38 | NUR ---
PATIENT STABLE SLEEPING IN BED.NO DISTRESS.
--- NOTE | 2016-08-18 07:20 | NUR ---
PATIENT STABLE REPORT ENDORSED TO REJI DUCKWORTH AT BEDSIDE SHE WILL RESUME CARE.
--- NOTE | 2016-08-18 07:21 | NUR ---
PT AWAKE AND ALERT, NO SIGNS OF ACUTE DISTRESS. BOWEL SOUNDS ACTIVE IN ALL 4 QUADRANTS. BOWEL AND BLADDER CONTINENCE. SKIN 4 ABDOMINAL INCISIONS COVERED WITH STERI STRIPS S/P LAP APPENDECTOMY 08/15. AMBULATORY WITH BRP. IV PATENT AND ASYMPTOMATIC. COMPLAINT OF PAIN 09/26 IN ABDOMEN. RE-ORIENTED PATIENT TO UNIT AND TO HOSPITAL, PT VERBALIZED UNDERSTANDING. BED IN LOW POSITION WITH BILATERAL HALF SIDE RAILS UP, CALL LIGHT WITHIN REACH.
[2016-08-18 07:22] LABS: BASOPHILS # (AUTO) 0.1 K/uL (0.00-0.22); BASOPHILS % (AUTO) 1.6 % (0.0-2.0); EOSINOPHILS # (AUTO) 0.2 K/uL (0-0.4); EOSINOPHILS % (AUTO) 2.4 % (0.0-4.0); HEMATOCRIT 29.2 % (36-48); HEMOGLOBIN 9.9 g/dL (12.0-16.0); LYMPHOCYTES # (AUTO) 1.5 K/uL (2.5-16.5); LYMPHOCYTES % (AUTO) 17.1 % (20.5-51.1); MEAN CORPUSCULAR HEMOGLOBIN 30 pg (27-31); MEAN CORPUSCULAR HGB CONC 34 g/dL (33-37); MEAN CORPUSCULAR VOLUME 89 fL (80-94); MONOCYTES # (AUTO) 0.9 K/uL (0.8-1.0); MONOCYTES % (AUTO) 9.8 % (1.7-9.3); NEUTROPHILS % (AUTO) 69.1 % (42.2-75.2); PLATELET COUNT (AUTO) 170 K/uL (140-450); RED BLOOD CELL COUNT(AUTO) 3.28 MIL/uL (4.20-5.40); RED CELL DISTRIBUTION WIDTH 12.8 % (11.6-13.7); WHITE BLOOD COUNT (AUTO) 8.7 K/uL (4.8-10.8)
[2016-08-18 08:00] VITALS: BP 121/72
[2016-08-18] MEDS: ENOXAPARIN 40 MG/0.4 ML SYR SUBQ SCH (09:09)
--- NOTE | 2016-08-18 10:30 | NUR ---
RECEIVED NEW ORDERS FROM DR AYALA FOR AM CBC AND BMP 08/19/16, NOTED, WILL CARRY OUT.
--- NOTE | 2016-08-18 15:31 | NUR ---
08/18/16 RD FOLLOW UP COMPLETED PLEASE REFER TO NUTRITION PROGRESS NOTE UNDER CARE ACTIVITY FOR ESTIMATED NUTRITION NEEDS. RD RECOMMENDATIONS: 1. CONTINUE REGULAR DIET TOLERATED. -NOTE PT CONSUMED 100% OF BREAKFAST THIS MORNING ON REGULAR DIET. 2. RD WILL F/U 7 DAYS; LOW RISK. ZAYRA BLAND, RD
--- NOTE | 2016-08-18 15:50 | NUR ---
OK PER DR JAQUEZ TO D/C HOWEVER NOT OK PER DR AYALA. DR AYALA WOULD LIKE TO WAIT AND SEE HER HGB AND HCT TOMORROW MORNING FIRST. NOTED, WILL CARRY OUT.
[2016-08-18 16:00] VITALS: BP 145/88
--- NOTE | 2016-08-18 17:28 | NUR ---
PER DR JAQUEZ IS HGB IS AROUND 9 OR HIGHER TOMORROW OK TO D/C. NOTED, WILL CARRY OUT. Addendum: 08/18/16 at 1924 by Atiya Cao RN PER DR JAQUEZ IF HGB IS AROUND 9 OR HIGHER TOMORROW OK TO D/C. NOTED, WILL CARRY OUT.
--- NOTE | 2016-08-18 19:20 | NUR ---
PATIENT AWAKE AND ALERT, NO SIGNS OF ACUTE DISTRESS. ENDORSED TO ROPING MACHINE TENDER NURSE FOR CONTINUITY OF CARE.
--- NOTE | 2016-08-18 19:30 | NUR ---
RECEIVED REPORT FROM DAY RN AT BEDSIDE, PATIENT AAOX4 RESTING IN BED ON ROOM AIR, NO SOB OR SIGN OF DISTRESS, IV TO LEFT FA PATENT AND INTACT. PT S/P LAP APPY WITH X4 ABDOMINAL INCISIONS WITH STERISTRIPS, PATIENT DENIES PAIN AT THIS TIME, DISCUSSED PLAN OF CARE WITH PATIENT, PT VERBALIZED UNDERSTANDING, CALL LIGHT WITHIN REACH. WILL CONTINUE TO MONITOR.
--- NOTE | 2016-08-18 20:10 | NUR ---
PT RESTING IN BED, NO SIGN OF DISTRESS, IV ABX ADMINISTERED, CALL LIGHT WITHIN REACH. WILL CONTINUE TO MONITOR.
--- NOTE | 2016-08-18 22:30 | NUR ---
PT SLEEPING, NO SOB OR SIGN OF DISTRESS, CALL LIGHT WITHIN REACH. WILL CONTINUE TO MONITOR.
[2016-08-19] VITALS: BP 108/49
--- NOTE | 2016-08-19 00:24 | NUR ---
VITAL SIGNS STABLE, NO SOB OR SIGN OF DISTRESS, CALL LIGHT WITHIN REACH. WILL CONTINUE TO MONITOR.
[2016-08-19] MEDS: HYDROmorphone 1 MG/ML AMP IVP PRN ×2 (00:51→04:18)
--- NOTE | 2016-08-19 02:38 | NUR ---
PT SLEEPING, NO SIGN OF DISTRESS, CALL LIGHT WITHIN REACH, WILL CONTINUE TO MONITOR.
--- NOTE | 2016-08-19 04:29 | NUR ---
PT C/O PAIN IN ABDOMEN ADMINISTERED DIALUDED PER MD ORDER, PT RESTING IN BED, CALL LIGHT WITHIN REACH. WILL CONTINUE TO MONITOR.
[2016-08-19 05:58] LABS: BASOPHILS # (AUTO) 0.1 K/uL (0.00-0.22); BASOPHILS % (AUTO) 0.8 % (0.0-2.0); EOSINOPHILS # (AUTO) 0.4 K/uL (0-0.4); EOSINOPHILS % (AUTO) 4.1 % (0.0-4.0); HEMATOCRIT 29.3 % (36-48); HEMOGLOBIN 9.8 g/dL (12.0-16.0); LYMPHOCYTES # (AUTO) 1.9 K/uL (2.5-16.5); LYMPHOCYTES % (AUTO) 21.5 % (20.5-51.1); MEAN CORPUSCULAR HEMOGLOBIN 30 pg (27-31); MEAN CORPUSCULAR HGB CONC 33 g/dL (33-37); MEAN CORPUSCULAR VOLUME 89 fL (80-94); MONOCYTES # (AUTO) 0.7 K/uL (0.8-1.0); MONOCYTES % (AUTO) 7.7 % (1.7-9.3); NEUTROPHILS # (AUTO) 5.8 K/uL (1.8-7.7); NEUTROPHILS % (AUTO) 65.9 % (42.2-75.2); PLATELET COUNT (AUTO) 193 K/uL (140-450); RED BLOOD CELL COUNT(AUTO) 3.29 MIL/uL (4.20-5.40); RED CELL DISTRIBUTION WIDTH 12.4 % (11.6-13.7); WHITE BLOOD COUNT (AUTO) 8.9 K/uL (4.8-10.8)
[2016-08-19 06:17] LABS: ANION GAP 9.8 (8-16); CARBON DIOXIDE 27.7 mmol/L (21-32); CREATININE 0.6 mg/dL (0.6-1.3); POTASSIUM 3.5 mmol/L (3.5-5.1)
--- NOTE | 2016-08-19 07:24 | NUR ---
RECEIVED PT REPORT AT BEDSIDE FROM NIGHT NURSE. PT IS AAOX4 AND SHOWS NO S/S OF DISTRESS ON ROOM AIR. PT HAS A NOTED IV ON THE L FA WITH IVF'S INFUSING WELL. PT HAS 4 ABD INCISIONS WITH STERI STRIPS THAT ARE CLEAN DRY AND INTACT. PT DOES C/O PAIN WILL MEDICATE FOR IT. PT IS AWARE OF POC FOR TODAY. PT VERBALIZED UNDERSTANDING. PT'S BED IS LOWERED WITH CALL LIGHT WITHIN REACH.
--- NOTE | 2016-08-19 07:24 | NUR ---
ENDORSED PATIENT TO DAY RN AT BEDSIDE, PATIENT IN STABLE CONDITION
--- NOTE | 2016-08-19 07:45 | NUR ---
CALLED DR. AYALA AND STATED OKAY TO DISCHARGE. HGB-9.8 AND HCT-29.3
[2016-08-19 08:00] VITALS: BP 150/83
[2016-08-19] MEDS: ENOXAPARIN 40 MG/0.4 ML SYR SUBQ SCH (08:38)
--- NOTE | 2016-08-19 08:45 | NUR ---
ADMINISTERED SCHEDULED MEDICATIONS. PT TOLERATED ACTIVITY WELL. PICTURES WERE TAKEN OF 4 ABD INCISION THAT ARE CLEAN DRY AND INTACT. PT HAS BEEN DISCHARGED. DISCHARGE INSTRUCTIONS AND PRESCRIPTIONS WERE GIVEN. ALL PAPERWORK SIGNED. ALL QUESTIONS ANSWERED. PT VERBALIZED UNDERSTANDING. ALL BELONGINGS AND PRESCRIPTIONS IN PT POSSESSION. IV DISCONTINUED WITH CANNULA INTACT, WRISTBANDS AND TELE MONITORING REMOVED. PT LEFT UNIT IN WHEELCHAIR. PT HAD FAMILY AT SIDE. PT LEFT UNIT IN STABLE CONDITION.
--- NOTE | 2016-08-19 13:39 | NUR ---
CM NOTE CONCURRENT REVIEW FAXED TO [facility] [phone] JAH EXT [phone]
== END 2016-08-19 08:45 | disposition home or self-care (01) | DRG 225 ==
LOC: MED 21:44 → MTU 08-14 02:05 → MIC 08-14 03:23 → MTU 08-14 07:59
PROVIDERS: ADMIT Hospitalist; ATTEND Hospitalist
PROC: 0DTJ4ZZ Resection of Appendix, Percutaneous Endoscopic Approach (ICD-10-PCS; principal; 2016-08-15 12:30)
PROC: 30233N1 Transfusion of Nonautologous Red Blood Cells into Peripheral Vein, Percutaneous Approach (ICD-10-PCS; 2016-08-17)
DX: K35.80 Unspecified acute appendicitis (principal); D62 Acute posthemorrhagic anemia; E66.9 Obesity, unspecified; Z68.32 Body mass index [BMI] 32.0-32.9, adult
CPT/HCPCS: 36415; 71010; 76705; 80048; 80053; 81001; 81025; 83690; 85025; 85610; 86886; 86900; 86901; 86920; 87081; 87086; 96365; 96375; 96376; 99285; J0330; J1170; J1650; J1885; J2270; J2370; J2405; J2543; J2704; J3010; J3490; J7030; J7060; J7120; P9016; Q0092

== ENCOUNTER 2016-08-21 23:00 | Emergency (ER) | payer OTHER ==
[~2016-08-21] VITALS: Ht 160 cm; Wt 86.2 kg
[2016-08-21 23:17] VITALS: BP 150/70
--- NOTE | 2016-08-22 01:25 | NUR ---
PATIENT LEFT WITHOUT BEING SEEN BY DR. CYR. NO FURTHER CARE PROVIDED FOR PATIENT.
== END 2016-08-22 01:25 | disposition left against medical advice (07) ==
LOC: MED 23:00
DX: G89.18 Other acute postprocedural pain (principal); Z53.21 Procedure and treatment not carried out due to patient leaving prior to being seen by health care provider

== ENCOUNTER 2016-08-24 18:25 | Emergency (ER) | payer OTHER ==
[~2016-08-24] VITALS: Ht 162.6 cm; Wt 85.4 kg
[2016-08-24 18:44] VITALS: BP 116/61
--- NOTE | 2016-08-24 20:37 | NUR ---
PATIENT AMBULATED TO ER BED 3.
--- NOTE | 2016-08-24 21:00 | NUR ---
30 Y/O F W/C/O R LOWER ABD PAIN X 1 WK S/P APPENDECTOMY. DENIES ANY FEVER OR CHILLS. NO S/S OF INFECTION ON INCISIONS. ER MADE AWARE.
--- NOTE | 2016-08-24 21:10 | NUR ---
PATIENT BEING EVALUATED BY DR. MOLINA.
[2016-08-24] MEDS ORDERED: NACL 0.9% 1,000 ML IV ONE (21:20)
[2016-08-24] MEDS ORDERED: ONDANSETRON 4 MG/2 ML VIAL IVP ONE (21:20)
[2016-08-24] MEDS ORDERED: HYDROmorphone 1 MG/ML AMP IVP ONE (21:20)
[2016-08-24 21:21] LABS: BASOPHILS # (AUTO) 0.1 K/uL (0.00-0.22); EOSINOPHILS # (AUTO) 0.2 K/uL (0-0.4); EOSINOPHILS % (AUTO) 2.2 % (0.0-4.0); HEMATOCRIT 33.3 % (36-48); LYMPHOCYTES # (AUTO) 2.1 K/uL (2.5-16.5); LYMPHOCYTES % (AUTO) 20.3 % (20.5-51.1); MEAN CORPUSCULAR HEMOGLOBIN 30 pg (27-31); MEAN CORPUSCULAR HGB CONC 33 g/dL (33-37); MEAN CORPUSCULAR VOLUME 90 fL (80-94); MONOCYTES # (AUTO) 0.6 K/uL (0.8-1.0); MONOCYTES % (AUTO) 6.3 % (1.7-9.3); NEUTROPHILS # (AUTO) 7.3 K/uL (1.8-7.7); NEUTROPHILS % (AUTO) 70.2 % (42.2-75.2); PLATELET COUNT (AUTO) 342 K/uL (140-450); RED BLOOD CELL COUNT(AUTO) 3.72 MIL/uL (4.20-5.40); RED CELL DISTRIBUTION WIDTH 12.6 % (11.6-13.7); WHITE BLOOD COUNT (AUTO) 10.3 K/uL (4.8-10.8)
[2016-08-24 21:30] LABS: ANION GAP 13.4 (8-16); CALCIUM 8.7 mg/dL (8.5-10.1); CARBON DIOXIDE 26.8 mmol/L (21-32); CREATININE 0.7 mg/dL (0.6-1.3); POTASSIUM 4.2 mmol/L (3.5-5.1)
[2016-08-24 21:31] LABS: BILIRUBIN,URINE NEGATIVE (NEGATIVE); BLOOD, URINE 3+ (NEGATIVE); COLOR,URINE YELLOW (YELLOW); LEUKOCYTE ESTERASE ,URINE NEGATIVE (NEGATIVE); NITRITE, URINE NEGATIVE (NEGATIVE); PROTEIN,URINE NEGATIVE (NEGATIVE); UGLUCOSE NEGATIVE (NEGATIVE); UROBILINOGEN,URINE 0.2 EU/dL (0.2 - 1)
[2016-08-24 21:32] LABS: APPEARANCE,URINE CLOUDY (CLEAR)
[2016-08-24 21:36] LABS: ALBUMIN 3.3 g/dL (3.4-5.0); TOTAL PROTEIN, SERUM 7.8 g/dL (6.4-8.2)
[2016-08-24 21:42] LABS: BACTERIA,URINE FEW /HPF (None Seen); RBC,URINE NONE SEEN /HPF (0-5); SQUAMOUS EPITHELIAL CELL,UR FEW /LPF (0-3 (FEW)); WBC,URINE 0-5 (RARE) /HPF (0-5)
--- NOTE | 2016-08-24 23:30 | NUR ---
PT RESTING IN BED ON MONITOR . NO S/S OF DISTRESS NOTED AT THE MOMENT.
[2016-08-25] MEDS ORDERED: HYDROcodone/APAP 10/325 MG 1 TAB TAB PO STA (01:26)
[2016-08-25 01:44] VITALS: BP 123/76
--- NOTE | 2016-08-25 01:44 | NUR ---
Patient discharged with v/s stable. Written and verbal after care instructions given and explained. Patient alert, oriented and verbalized understanding of instructions. Ambulatory with steady gait. All questions addressed prior to discharge. ID band removed. Patient advised to follow up with PMD OR RETURN TO ER IF CONDITION WORSENS. Rx of CAMPBELL FELIX given. Patient educated on indication of medication including possible reaction and side effects. Opportunity to ask questions provided and answered.
== END 2016-08-25 01:44 | disposition home or self-care (01) ==
LOC: MED 18:25
DX: R10.31 Right lower quadrant pain (principal); L03.116 Cellulitis of left lower limb; I83.12 Varicose veins of left lower extremity with inflammation; I83.11 Varicose veins of right lower extremity with inflammation; I10 Essential (primary) hypertension; Z90.89 Acquired absence of other organs
CPT/HCPCS: 36415; 80053; 81001; 81025; 85025; 96361; 96374; 96375; 99284; J1170; J2405; J7030

== ENCOUNTER 2018-06-29 10:39 | Emergency (ER) | payer OTHER ==
[~2018-06-29] VITALS: Ht 160 cm; Wt 89.4 kg
[2018-06-29 10:53] VITALS: BP 153/106
--- NOTE | 2018-06-29 11:01 | NUR ---
Patient ambulated to bed 2. RN evaluating patient at bedside.
--- NOTE | 2018-06-29 11:07 | NUR ---
PATIENT PRESENTS TO ED WITH N/V/D X 1 WEEK & EPIDASTRIC PAIN RADIATING TO LOWER BACK X 2 WEEKS.DENIES DYSURIA. ABDOMEN SOFT. PATIENT STATES PAIN OF 8/10 AT THIS TIME; PATIENT POSITIONED FOR COMFORT; HOB ELEVATED; BEDRAILS UP X1; BED DOWN. ER MD MADE AWARE OF PT STATUS.
--- NOTE | 2018-06-29 11:16 | NUR ---
Dr. Masterson evaluating patient at bedside.
[2018-06-29] MEDS ORDERED: NACL 0.9% 1,000 ML IV SCH (11:21)
[2018-06-29] MEDS ORDERED: ONDANSETRON 4 MG/2 ML VIAL IVP ONE (11:25)
[2018-06-29] MEDS ORDERED: KETOROLAC 30 MG/ML VIAL IVP ONE (11:25)
--- NOTE | 2018-06-29 11:45 | NUR ---
BLOOD SENT TO LAB
--- NOTE | 2018-06-29 11:45 | NUR ---
Patient returned from CT scan. RN re-evaluating patient at bedside.
--- NOTE | 2018-06-29 11:46 | NUR ---
Sita sarmiento in [facility] - 06/29/18 at 1146 by MED1 PT RETURNED FROM CT.
--- NOTE | 2018-06-29 11:49 | NUR ---
PT BACK FROM CT
[2018-06-29 11:56] LABS: BASOPHILS # (AUTO) 0.1 K/uL (0.00-0.22); BASOPHILS % (AUTO) 0.4 % (0.0-2.0); EOSINOPHILS # (AUTO) 0.1 K/uL (0-0.4); EOSINOPHILS % (AUTO) 0.4 % (0.0-4.0); HEMATOCRIT 42.4 % (36-48); HEMOGLOBIN 14.1 g/dL (12.0-16.0); LYMPHOCYTES % (AUTO) 17.1 % (20.5-51.1); MEAN CORPUSCULAR HEMOGLOBIN 30 pg (27-31); MEAN CORPUSCULAR HGB CONC 33 g/dL (33-37); MEAN CORPUSCULAR VOLUME 89.1 fL (80-94); MONOCYTES # (AUTO) 1.2 K/uL (0.8-1.0); MONOCYTES % (AUTO) 9.9 % (1.7-9.3); NEUTROPHILS # (AUTO) 8.5 K/uL (1.8-7.7); NEUTROPHILS % (AUTO) 72.2 % (42.2-75.2); PLATELET COUNT (AUTO) 269 K/uL (140-450); RED BLOOD CELL COUNT(AUTO) 4.76 MIL/uL (4.20-5.40); RED CELL DISTRIBUTION WIDTH 13.1 % (11.6-13.7); WHITE BLOOD COUNT (AUTO) 11.8 K/uL (4.8-10.8)
[2018-06-29 12:08] LABS: ANION GAP 15.4 (8-16); CARBON DIOXIDE 24.5 mmol/L (21-32); CREATININE 0.7 mg/dL (0.6-1.3); POTASSIUM 3.9 mmol/L (3.5-5.1)
[2018-06-29 12:22] LABS: TOTAL BILIRUBIN 0.4 mg/dL (0.0-1.0)
--- NOTE | 2018-06-29 12:56 | NUR ---
Dr. Masterson reevaluating patient at bedside.
[2018-06-29 13:07] LABS: APPEARANCE,URINE CLEAR (CLEAR); BILIRUBIN,URINE NEGATIVE (NEGATIVE); BLOOD, URINE TRACE-L (NEGATIVE); COLOR,URINE YELLOW (YELLOW); LEUKOCYTE ESTERASE ,URINE NEGATIVE (NEGATIVE); NITRITE, URINE NEGATIVE (NEGATIVE); UGLUCOSE NEGATIVE (NEGATIVE)
[2018-06-29 13:15] LABS: RBC,URINE 0-5 /HPF (0-5); WBC,URINE 0-5 /HPF (0-5)
[2018-06-29] MEDS ORDERED: DIPHENOXYLATE /ATROPINE 2.5 MG TAB PO ONE (13:25)
[2018-06-29 14:21] VITALS: BP 121/71
--- NOTE | 2018-06-29 14:21 | NUR ---
Patient discharged with v/s stable. Written and verbal after care instructions given and explained. Patient alert, oriented and verbalized understanding of instructions. Ambulatory with steady gait. All questions addressed prior to discharge. ID band removed. Patient advised to follow up with PMD. Rx of ZOFRAN & LOMOTIL given. Patient educated on indication of medication including possible reaction and side effects. Opportunity to ask questions provided and answered.
== END 2018-06-29 14:21 | disposition home or self-care (01) ==
LOC: MED 10:39
DX: R19.7 Diarrhea, unspecified (principal); K56.7 Ileus, unspecified; F17.210 Nicotine dependence, cigarettes, uncomplicated; I10 Essential (primary) hypertension; Z90.49 Acquired absence of other specified parts of digestive tract
CPT/HCPCS: 36415; 74176; 80053; 81001; 81025; 83605; 83690; 85025; 87040; 96361; 96374; 96375; 99284; J1885; J2405; J7030